=== PATIENT | male | born 1950 | race Caucasian/White ===

== ENCOUNTER → 2019-04-29 | Day surgery (SDC) | payer BC ==
--- NOTE | 2019-04-24 16:26 | HP ---
CC: Dr. Silva HISTORY AND PHYSICAL: DATE OF PLANNED ADMISSION/SURGERY: 04/29/19 HISTORY OF PRESENT ILLNESS: Mr. Cardona is a 69-year-old white male who is admitted with a left hydrocele for surgical repair. Mr. Cardona was referred to my office in August [address] Silva because of progressive left scrotal swelling. Initially, it was minimally symptomatic, causing him no inguinal or scrotal heaviness or pain. There was no history of any inguinal or scrotal trauma or surgery. The patient was evaluated and diagnosed as having a left hydrocele. Because it was not symptomatic, conservative management was recommended. The patient came back to see me recently and he reported that the hydrocele has gotten larger, has become more symptomatic and started interfering with his physical activities. The examination confirmed the presence of a 12 to 15 cm transilluminating left hydrocele. Because of the above history and the worsening symptoms, surgical repair was advised and accepted. PAST MEDICAL HISTORY AND SYSTEM REVIEW: The patient had past history of coronary artery disease, required coronary stent placement in [address] Armenta. He had been maintained on metoprolol 50 mg daily and atorvastatin 20 mg daily and 1 baby aspirin per day. He has done very well and has had no recurrent chest pain, shortness of breath, or difficulty breathing. He has been asymptomatic from his heart. He was discharged from cardiology care. He reports having good exercise tolerance without any chest pain or shortness of breath. ALLERGIES: He denies any allergies to medications. He denies any recreational drug use. FAMILY HISTORY: Negative. SOCIAL HISTORY: The patient is a nonsmoker. PHYSICAL EXAMINATION GENERAL: He is a moderately overweight, otherwise healthy looking white male. VITAL SIGNS: Blood pressure 130/80, pulse of 70. LUNGS: Clear. HEART: Regular and rhythmic. No murmurs. ABDOMEN: Soft. No masses, no tenderness, and no CVA tenderness. EXTERNAL GENITALIA: There is a large tense left hydrocele, extending into the inguinal area, measuring about 12 to 15 cm. It diffusely transilluminates. No inguinal hernias are noted. The right testis feels normal. RECTAL: Exam had shown a slightly enlarged, but nonsuspicious prostate. IMPRESSION: 1. Enlarging symptomatic left hydrocele. 2. Past history of coronary artery disease, stable and asymptomatic. PLAN/RECOMMENDATIONS: Plan is for left hydrocelectomy. I discussed the procedure in detail with the patient. Some of the potential complications including infection, scrotal hematoma were discussed. He also understands it will take several weeks before the scrotal swelling resolves postoperatively. [id number]/[facility] #: [id number] MTDCaryl
[~2019-04-29] MED LIST: Acetaminophen TAB* 325 MG ONE; Acetaminophen TAB* 325 MG PO ONE; Buffered Lidocaine 1% SYRIN* 1 ML/SYRINGE INTRADERM ONE; Bupivacaine 0.5%* 50 ML MDV VIAL ONE; Dexamethasone IV* 4 MG/ML 1 ML (4 MG) ONE; DiMENhydriNATE IV* 50 MG/ML VIAL IV PUSH PRN; EPHEDrine (Pressors)* 50 MG/ML VIAL ONE; Famotidine IV* 10 MG/ML 2 ML (20 mg) ONE; HYDROcodone/ACETAMIN 5-325 MG* 1 TAB PO PRN; Lactated Ringers 1000 ML Bag* 1,000 ML IV SCH; Lidocaine 2% PF * 5 ML VIAL ONE; Midazolam* 1 MG/ML 2 ML VIAL (2 MG) ONE; Naloxone* 0.4 MG/ML 1 ML VIAL IV PRN; Ondansetron INJ* 2 MG/ML VIAL IV PRN; Propofol* 10 MG/ML 20 ML BTL ONE; ceFAZolin 2 GM in NS PREMIX(*) 2 GM/100 ML BAG IVPB ONE; diPHENhydraMINE IV* 50 MG/ML 1 ml VIAL (BENADRYL) IV PRN; fentaNYL* 50 MCG/ML 2 ML VIAL (100 MCG VIAL) IV PRN; fentaNYL* 50 MCG/ML 2 ML VIAL (100 MCG VIAL) ONE; oxyCODONE/Acetamin 5/325 MG* TAB ONE
--- NOTE | 2019-04-29 10:07 | OP ---
CC: Dr. Silva * DATE OF OPERATION: 04/29/19 - SDS DATE OF : 48 SURGEON: Dr. Tran. DIRECTOR VISUAL: Bhavna Badillo RN, surgical garment assembler. ANESTHESIOLOGIST: Dr. Jesse Mcgowan. ANESTHESIA: General. PRE-OP DIAGNOSIS: Left hydrocele. POST-OP DIAGNOSIS: Left hydrocele. OPERATIVE PROCEDURE: Left hydrocelectomy. INDICATIONS: Mr. Cardona is a 69-year-old white male who developed progressive left scrotal enlargement, which recently became significantly larger and more symptomatic. Evaluation confirmed the presence of a 12 cm tense left hydrocele. No associated hernia noted. Because of the above history and findings, surgical repair was advised and accepted. PATHOLOGY: Upon left scrotal exploration, there was a large left hydrocele with about 500 cc of straw-colored hydrocele fluid. No lesions were noted on the hydrocele sac. No inguinal hernia noted. The left testis looked normal. DESCRIPTION OF PROCEDURE: After successful general anesthesia, the patient was placed in the supine position and was prepped and draped for scrotal surgery. A transverse incision was carried in the mid anterior left mattie-scrotal skin and was deepened through the dartos muscle. The hydrocele sac was identified and was dissected and delivered through the scrotal incision. The hydrocele sac was then opened and the fluid drained. The hydrocele sac was then excised using a cautery and the excised portions were sent for pathology. The stump of the hydrocele sac was then everted and approximated to itself using a running locking suture of 4-0 Vicryl achieving very good hemostasis. The spermatic cord was intact and the testis looked normal. After making sure there was very good hemostasis inside the scrotal cavity, the testis was replaced in its anatomical position. A [place] drain was placed in the scrotal cavity and was brought out through a stab wound incision in the dependent portion of the scrotal cavity. The scrotal incision was then closed using a running, locking sutures of 4-0 Vicryl. The skin was then approximated using interrupted everting sutures of 4- 0 Vicryl. The [place] drain was transfixed to the skin with a 2-0 Prolene suture. Before the closure of the skin incision, a total of 10 cc of 0.5% Marcaine without epinephrine was infiltrated in the skin incision for postoperative analgesia. The patient tolerated the procedure well and left the operating room in good condition. The blood loss was negligible. The specimen was portions of left hydrocele sac. All the counts were correct. The plan is to see the patient in the office tomorrow for drain removal. [id number]/[facility] #: [id number] MTDD
[2019-04-29 10:33] VITALS: BP 132/67
== END | disposition home or self-care (01) ==
LOC: OR 05:40
PROVIDERS: ATTEND Urology
DX: N43.2 Other hydrocele (principal); I25.10 Atherosclerotic heart disease of native coronary artery without angina pectoris; I25.2 Old myocardial infarction; K21.9 Gastro-esophageal reflux disease without esophagitis; E78.5 Hyperlipidemia, unspecified; E66.9 Obesity, unspecified; Z68.35 Body mass index [BMI] 35.0-35.9, adult
CPT/HCPCS: 88302; A9270-GY; J0690; J1100; J2250; J2704; J3010; J3490

== ENCOUNTER 2023-04-07 16:03 | Observation (INO) ==
[2023-04-07 16:42] LABS: ABS Basophils 0.1 10^3/uL (0.0-0.1); ABS Lymphocytes 1.7 10^3/uL (1.0-4.8); ABS Monocytes 0.5 10^3/uL (0.0-1.1); ABS Neutrophils 9.2 10^3/uL (1.5-7.6); ABS Nucleated RBC 0.02 10^3/ul; Eosinophil % 0.1 %; Hematocrit 46.2 % (38-53); Hemoglobin 15.4 g/dL (13.2-16.3); Lymphocyte % 14.8 %; Mean Corpuscular Hemoglobin 28.7 pg (27-33); Mean Corpuscular Hgb Conc 33.4 g/dL (31-36); Mean Corpuscular Volume 85.8 fL (80-97); Mean Platelet Volume 7.9 fL (7.5-11.2); Nucleated Red Blood Cells % 0.2 /100 WBC (0.0-0.4); Platelet Count 215 10^3/uL (150-450); Red Blood Count 5.38 10^6/uL (4.06-5.63); Red Cell Distribution Width 14.9 % (12-17); White Blood Count 11.5 10^3/uL (3.6-10.2)
[2023-04-07 16:50] LABS: Activated Partial Thrombo Time 25.4 seconds (26.0-38.0); INR 1.02 (0.88-1.18)
[2023-04-07 17:00] LABS: Albumin 4.5 g/dL (3.2-5.2); Albumin/Globulin Ratio 1.5 (1-3); Calcium 9.7 mg/dL (8.6-10.3); Creatinine, Serum 1.11 mg/dL (0.67-1.17); HDL Cholesterol 38.5 mg/dL; Potassium 4.5 mmol/L (3.5-5.0); Total Bilirubin 0.9 mg/dL (0.2-1.0); Total Protein 7.5 g/dL (6.4-8.9); eGFR CKD-EPI 69.7 (>60)
[2023-04-07] MEDS ORDERED: Iodixanol (CONTRAST) 320 MG/ML 100 ML SDV IV ONE (17:24)
[2023-04-07 18:01] LABS: Urine Appearance Clear; Urine Bilirubin Negative (Negative); Urine Blood Negative (Negative); Urine Color Yellow; Urine Glucose Negative (Negative); Urine Ketones Trace (Negative); Urine Nitrite Negative (Negative); Urine Protein Negative (Negative); Urine Specific Gravity 1.054 (1.002-1.030); Urine Urobilinogen Negative (Negative)
[2023-04-07 18:10] LABS: Urine Benzodiazepine Screen None Detected (None Detect); Urine Cannabinoids Screen None Detected (None Detect); Urine Opiates Screen None Detected (None Detect)
[2023-04-07] MEDS ORDERED: Ondansetron 4 mg VIAL 2 MG/ML 2 ml VIAL IV ONE (19:43)
[2023-04-07] MEDS ORDERED: Enoxaparin 40 MG/0.4 ML SYR SUBCUT SCH (20:00)
[2023-04-07] MEDS ORDERED: Metoclopramide 5 MG/ML VIAL (10 mg) IV SLOW PU ONE (20:30)
[2023-04-08 05:32] LABS: ABS Lymphocytes 1.7 10^3/uL (1.0-4.8); ABS Monocytes 0.8 10^3/uL (0.0-1.1); ABS Neutrophils 10.3 10^3/uL (1.5-7.6); ABS Nucleated RBC 0.01 10^3/ul; Eosinophil % 0.1 %; Hematocrit 45.6 % (38-53); Hemoglobin 15.5 g/dL (13.2-16.3); Lymphocyte % 13.1 %; Mean Corpuscular Hemoglobin 28.9 pg (27-33); Mean Corpuscular Hgb Conc 33.9 g/dL (31-36); Mean Corpuscular Volume 85.3 fL (80-97); Nucleated Red Blood Cells % 0.1 /100 WBC (0.0-0.4); Platelet Count 232 10^3/uL (150-450); Red Blood Count 5.35 10^6/uL (4.06-5.63); Red Cell Distribution Width 14.5 % (12-17); White Blood Count 12.8 10^3/uL (3.6-10.2)
[2023-04-08 06:14] LABS: Calcium 9.3 mg/dL (8.6-10.3); Creatinine, Serum 1.05 mg/dL (0.67-1.17); Potassium 4.1 mmol/L (3.5-5.0); eGFR CKD-EPI 74.5 (>60)
[2023-04-08] MEDS ORDERED: Ondansetron 4 mg VIAL 2 MG/ML 2 ml VIAL IV PRN (09:32)
[2023-04-08] MEDS: Aspirin EC 81 mg TAB.EC (enteric coated) PO SCH (10:27)
[2023-04-08] MEDS ORDERED: Rocuronium 50 mg VIAL 10 mg/ml 5 ml VIAL (50 mg) ONE (12:48)
[2023-04-08] MEDS ORDERED: fentaNYL 100 mcg/2 ml 50 MCG/ML VIAL ONE ×2 (12:48→14:34)
[2023-04-08] MEDS ORDERED: Midazolam 2 mg/2 ml VIAL 1 mg/ml 2 ml VIAL (2 mg) ONE (12:49)
[2023-04-08] MEDS ORDERED: Propofol 10 MG/ML 20 ML BTL ONE (12:49)
[2023-04-08] MEDS ORDERED: Lidocaine 2% PF 5 ML VIAL ONE (12:49)
[2023-04-08] MEDS ORDERED: Succinylcholine 200 mg VIAL 20 mg/ml 10 ml VIAL (200 mg) ONE (13:24)
[2023-04-08] MEDS ORDERED: Bupivacaine 0.5% W/EPI SDV 10 ML VIAL INJ ONE (13:28)
[2023-04-08] MEDS ORDERED: Lidocaine 1% VIAL 10 MG/ML VIAL 30 ML ONE (13:28)
[2023-04-08] MEDS ORDERED: ceFAZolin 2 GM in NS PREMIX 2 GM/100 ML BAG IVPB ONE (13:30)
[2023-04-08] MEDS ORDERED: Dexamethasone IV 4 MG/ML VIAL 1 ml VIAL ONE (14:07)
[2023-04-08] MEDS ORDERED: Phenylephrine 40 mcg/mL 10mL (400mcg) SYRINGE ONE (14:17)
[2023-04-08] MEDS ORDERED: Ondansetron 4 mg VIAL 2 MG/ML 2 ml VIAL ONE (14:25)
[2023-04-08] MEDS ORDERED: Phenylephrine IV 10 MG/ML 1 ml VIAL ONE (14:26)
[2023-04-08] MEDS ORDERED: Acetaminophen IV 1 GM/100ML 1,000 MG/100 ML BAG IV ONE (14:34)
[2023-04-08] MEDS ORDERED: Naloxone 0.4 mg VIAL 0.4 mg/ml 1 ml VIAL IV PRN (15:05)
[2023-04-08] MEDS ORDERED: fentaNYL 100 mcg/2 ml 50 MCG/ML VIAL IV PRN (15:05)
[2023-04-08] MEDS ORDERED: Acetaminophen IV 1 GM/100ML 1,000 MG/100 ML BAG IV PRN (17:00)
[2023-04-09 06:18] LABS: ABS Basophils 0.1 10^3/uL (0.0-0.1); ABS Eosinophils 0.1 10^3/uL (0.0-0.5); ABS Lymphocytes 2.4 10^3/uL (1.0-4.8); ABS Monocytes 1.4 10^3/uL (0.0-1.1); ABS Neutrophils 11.6 10^3/uL (1.5-7.6); ABS Nucleated RBC 0.01 10^3/ul; Eosinophil % 0.4 %; Hemoglobin 13.8 g/dL (13.2-16.3); Lymphocyte % 15.3 %; Mean Corpuscular Hemoglobin 29.1 pg (27-33); Mean Corpuscular Hgb Conc 33.7 g/dL (31-36); Mean Corpuscular Volume 86.3 fL (80-97); Mean Platelet Volume 7.9 fL (7.5-11.2); Platelet Count 200 10^3/uL (150-450); Red Blood Count 4.75 10^6/uL (4.06-5.63); Red Cell Distribution Width 14.6 % (12-17); White Blood Count 15.5 10^3/uL (3.6-10.2)
[2023-04-09 06:36] LABS: Calcium 8.3 mg/dL (8.6-10.3); Creatinine, Serum 1.18 mg/dL (0.67-1.17); Potassium 4.1 mmol/L (3.5-5.0); eGFR CKD-EPI 64.8 (>60)
[2023-04-09] MEDS ORDERED: NS 0.9% 500 ml BAG 500 ML IV ONE (07:37)
[2023-04-09] MEDS: Aspirin EC 81 mg TAB.EC (enteric coated) PO SCH (09:06)
[2023-04-09 14:08] VITALS: BP 122/74
== END 2023-04-09 14:40 | disposition home or self-care (01) ==
LOC: EDHOLD 16:03 → ED 16:03 → SSU 17:00 → OR 04-08 13:19 → SUATTDRO 04-08 16:32 → INTOOBSV 04-08 16:32 → SSU 04-08 16:32 → UNDODISOB 04-09 14:40 → UNDODEPSDC 04-16 10:48
PROVIDERS: ADMIT Surgery; ATTEND Surgery